=== PATIENT | female | born 1940 ===

== ENCOUNTER 2018-04-11 12:42 | Outpatient (CLI) | payer MEDICARE, MEDICAID ==
--- NOTE | 2018-04-11 14:18 | RAD ---
LUMBAR SPINE THREE VIEWS: HISTORY: Low back pain. COMPARISON: 01/06/2014 FINDINGS: Three views of the lumbosacral spine show normal height and alignment of the vertebral bodies without fracture or subluxation. Small osteophytes are seen throughout the lumbar spine. Posterior facet a rthrosis is seen in the lumbar spine. Vascular calcifications are seen in the aorta. 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 POS: CAROLYN
--- NOTE | 2018-04-11 14:35 | ULT ---
RENAL ULTRASOUND: 04/11/2018 HISTORY: Recurrent urinary tract infections. TECHNIQUE: Multiple longitudinal and transverse images of the kidneys and bladder are obtained using a Multi-Her tz curvilinear transducer. Real-time color-flow images are obtained to evaluate the kidneys and blad nancie. FINDINGS: Both kidneys are of normal contour, axis, and size. The right kidney measures 11.3, and the left kid destiny 11.0 cm, from pole to pole. Bilateral renal parenchymal solid masses seen, both in the mid pole. The one on the right measures 1.9 x 1.8 x 2.1 cm, and the one on the left measures 1.7 x 1.8 x 2.1 cm. Further workup using pre and post contrast enhanced CT images of the kidneys may be of use to fu rther characterize these possible renal lesions. The urinary bladder is unremarkable. The pre-void bladder has three-dimensional measurements of 9 x 6.5 x 4.1 cm. This gives an estimated pre-void bird dder volume of 125 mL. IMPRESSION: Possible solid bilateral renal lesions. Further workup using pre and post contrast enhanced CT image s or MRI images recommended. POS: CAROLYN
== END 2018-04-11 12:43 | disposition home or self-care (01) ==
LOC: ULT 12:42
PROVIDERS: ATTEND Internal Medicine
DX: M47.896 Other spondylosis, lumbar region (principal); M54.5 Low back pain; N39.0 Urinary tract infection, site not specified
CPT/HCPCS: 72100; 76770